=== PATIENT | female | born 1980 | race Caucasian/White ===

== ENCOUNTER 2017-05-11 10:50 | Outpatient (CLI) | payer OTHER ==
[2017-05-11 11:47] LABS: eGFR (African) > 60; eGFR (Non-African) > 60
[2017-05-11 18:11] LABS: BASO % 0.5 % (0.0-1.5); EOS % 1.9 % (0.0-6.8); LYMPH ABS # 2.17 thou/uL (0.60-4.00); MCH. 29.9 pg (28.0-34.0); MCV 92.4 fL (80.0-100.0); MONOCYTE % 5.1 % (0.0-11.0); MONOCYTE ABS # 0.32 thou/uL (0.00-0.90); PLATELET COUNT 207 thou/uL (130-400)
== END 2017-05-11 10:52 ==
LOC: LAB 10:50
PROVIDERS: ATTEND Family Medicine
DX: R53.83 Other fatigue (principal)
CPT/HCPCS: 36415; 80053; 84439; 84443; 85025